=== PATIENT | male | born 1980 | race Caucasian/White ===

== ENCOUNTER → 2019-03-07 | Outpatient (CLI) | payer BC ==
[~2019-03-07] MED LIST: ALBUTEROL0.09 MG/A2 INH; ANTIBIOTIC O500 U/GM TP; AUGMENTIN 875 M1 TAB PO; CEFADROXIL500 M1 PO; CIPRO500 MG PO; CLARITIN-D 10 M1 T21 PO; CLARITIN10 MG PO; CLINDAMYCIN HC300 MG PO; HYDROCODONE BIT1 T11 PO; LOMOTIL 0.025 M1 TA1 PO; MULTIPLE VITAMI1 CAP PO; NAPROSYN500 MG PO; NKHM; TOBRADEX 0.1%-0.5 ML OPH; Tessalon Perle100 MG PO; VITAMIN B12; ZITHROMAX500 MG PO; ZOFRAN ODT4 MG SL
[2019-03-07 13:18] LABS: BILIRUBIN NEGATIVE (NEGATIVE); BLOOD NEGATIVE (NEGATIVE); CLARITY CLEAR (CLEAR); COLOR ORANGE (YELLOW); GLUCOSE NEGATIVE (NEGATIVE); KETONE NEGATIVE (NEGATIVE); LEUKO ESTERASE NEGATIVE (NEGATIVE); NITRITE NEGATIVE (NEGATIVE); SPECIFIC GRAVITY >= 1.030 (1.005-1.030); UROBILINOGEN 0.2 E.U./dl (0.2-1.0)
[2019-03-07 13:24] LABS: BACTERIA 1+; EPITHELIAL CELLS 0-2; MUCOUS TRACE; RBC 0-2 rbc/hpf (0-2)
[2019-03-07 13:48] LABS: CHOLESTEROL 191 mg/dL (<200); HDL CHOLESTEROL 35 mg/dl (40-60); LDL CHOLESTEROL 110 mg/dL (9-159); TRIGLYCERIDES 230 mg/dl (<150); VLDL CHOLESTEROL 46 mg/dL (6-40)
== END | disposition home or self-care (01) ==
LOC: LAB 12:59
PROVIDERS: Family Medicine
DX: R79.89 Other specified abnormal findings of blood chemistry (principal); R53.83 Other fatigue

== ENCOUNTER → 2020-04-01 | Outpatient (CLI) | payer BC | END | disposition home or self-care (01) | LOC: COVID19 11:43 | PROVIDERS: ATTEND Family Medicine | DX: U07.1 COVID-19 (principal) ==

== ENCOUNTER → 2020-04-12 | Outpatient (CLI) | payer BC | END | disposition home or self-care (01) | LOC: COVID19 11:40 | PROVIDERS: ATTEND Family Medicine | DX: Z20.828 Contact with and (suspected) exposure to other viral communicable diseases (principal) ==

== ENCOUNTER → 2020-04-28 | Outpatient (CLI) | payer BC ==
[2020-04-28 16:34] LABS: BASO % 0.5 % (0.0-1.0); BILIRUBIN Negative (Negative); BLOOD Negative (Negative); CLARITY Clear (Clear); COLOR Yellow (Yellow); EOS # 0.2 10*3/uL (0.0-0.4); EOS % 2.6 % (1.0-4.0); GLUCOSE Negative (Negative); KETONE Negative (Negative); LEUKO ESTERASE Negative (Negative); LYMPH # 2.2 10*3/uL (1.3-4.4); LYMPH % 29.8 % (27.0-41.0); MEAN CELL VOLUME 91.1 fl (80.0-94.0); MEAN CORPUSCULAR HGB 30.6 pg (27.0-31.0); MEAN CORPUSCULAR HGB CONC 33.6 g/dl (33.0-37.0); MEAN PLATELET VOLUME 9.8 fl (9.6-12.3); MONO # 0.5 10*3/uL (0.1-1.0); MONO % 6.4 % (3.0-9.0); NEUT # 4.4 10*3/uL (2.3-7.9); NEUT % 60.4 % (47.0-73.0); NITRITE Negative (Negative); PLATELET COUNT AUTOMATED 194 10*3/uL (130-400); RED BLOOD COUNT 4.61 10*6/uL (4.50-5.90); RETICULOCYTE % 1.02 % (0.50-2.50); SPECIFIC GRAVITY 1.025 (1.001-1.030); WHITE BLOOD COUNT 7.4 10*3/uL (4.8-10.8)
[2020-04-28 16:51] LABS: BUN 13 mg/dl (7-24); CHLORIDE 109 mmol/L (98-107); CHOLESTEROL 170 mg/dL (<200); CREATININE 0.87 mg/dL (0.70-1.30); GAMMA GLUTAMYL TRANSPEPTIDASE 27 U/L (15-85); HDL CHOLESTEROL 43 mg/dl (40-60); IRON 86 ug/dL (65-175); LDL CHOLESTEROL 82 mg/dL (9-159); POTASSIUM 3.6 mmol/L (3.5-5.1); SGOT/AST 27 IU/L (3-35); SGPT/ALT 34 U/L (12-78); SODIUM 142 mmol/L (136-145); TOTAL IRON BINDING CAPACITY 377 ug/dl (250-450); TOTAL PROTEIN 7.4 gm/dL (6.4-8.2); TRIGLYCERIDES 226 mg/dl (<150); VLDL CHOLESTEROL 45 mg/dL (6-40)
[2020-04-28 16:54] LABS: BACTERIA TRACE; WBC 0-2 wbc/hpf (0-5)
[2020-04-28 16:58] LABS: ALKALINE PHOSPHATASE 78 U/L (45-117); CPK 74 U/L (39-308)
== END | disposition home or self-care (01) ==
LOC: LAB 15:54
PROVIDERS: ATTEND Family Medicine
DX: E78.5 Hyperlipidemia, unspecified (principal); R79.89 Other specified abnormal findings of blood chemistry; R53.83 Other fatigue

== ENCOUNTER → 2020-11-08 | Outpatient (CLI) | payer BC ==
[2020-11-08 09:47] LABS: COLOR Yellow (Yellow)
[2020-11-08 09:48] LABS: BASO % 0.5 % (0.0-1.0); BILIRUBIN Negative (Negative); BLOOD Negative (Negative); CLARITY Cloudy (Clear); EOS # 0.2 10*3/uL (0.0-0.4); EOS % 3.1 % (1.0-4.0); GLUCOSE Negative (Negative); HEMATOCRIT 44.6 % (42.0-52.0); KETONE Negative (Negative); LEUKO ESTERASE Negative (Negative); LYMPH # 1.8 10*3/uL (1.3-4.4); LYMPH % 27.7 % (27.0-41.0); MEAN CELL VOLUME 90.3 fl (80.0-94.0); MEAN CORPUSCULAR HGB 30.8 pg (27.0-31.0); MEAN CORPUSCULAR HGB CONC 34.1 g/dl (33.0-37.0); MONO # 0.3 10*3/uL (0.1-1.0); MONO % 4.3 % (3.0-9.0); MUCOUS TRACE; NEUT # 4.2 10*3/uL (2.3-7.9); NEUT % 64.2 % (47.0-73.0); NITRITE Negative (Negative); PLATELET COUNT AUTOMATED 208 10*3/uL (130-400); RBC 0-2 rbc/hpf (0-2); RED BLOOD COUNT 4.94 10*6/uL (4.50-5.90); RED CELL DISTRI WIDTH 12.8 % (0-14.5); RETICULOCYTE % 1.06 % (0.50-2.50); WBC 0-2 wbc/hpf (0-5); WHITE BLOOD COUNT 6.5 10*3/uL (4.8-10.8)
[2020-11-08 10:03] LABS: ALBUMIN 3.9 gm/dl (3.1-4.5); ALKALINE PHOSPHATASE 87 U/L (45-117); BUN 12 mg/dl (7-24); CHLORIDE 112 mmol/L (98-107); CHOLESTEROL 159 mg/dL (<200); CPK 88 U/L (39-308); CREATININE 1.14 mg/dL (0.70-1.30); GAMMA GLUTAMYL TRANSPEPTIDASE 21 U/L (15-85); IRON 139 ug/dL (65-175); LDL CHOLESTEROL 79 mg/dL (9-159); POTASSIUM 3.8 mmol/L (3.5-5.1); SGOT/AST 25 IU/L (3-35); SGPT/ALT 26 U/L (12-78); SODIUM 143 mmol/L (136-145); TOTAL IRON BINDING CAPACITY 344 ug/dl (250-450); TOTAL PROTEIN 7.5 gm/dL (6.4-8.2); TRIGLYCERIDES 201 mg/dl (<150)
[2020-11-08 10:35] LABS: FERRITIN 157.9 ng/mL (22.0-322.0); VITAMIN D, 25-HYDROXY 22.3 ng/mL (30-100)
== END | disposition home or self-care (01) ==
LOC: LAB 09:03
PROVIDERS: ATTEND Family Medicine
DX: E55.9 Vitamin D deficiency, unspecified (principal); R79.89 Other specified abnormal findings of blood chemistry; R53.83 Other fatigue; E78.5 Hyperlipidemia, unspecified; R74.8 Abnormal levels of other serum enzymes

== ENCOUNTER → 2021-05-28 | Outpatient (CLI) | payer BC ==
[2021-05-28 16:17] LABS: BASO # 0.1 10*3/uL (0.0-0.1); BASO % 0.8 % (0.0-1.0); EOS # 0.3 10*3/uL (0.0-0.4); EOS % 3.3 % (1.0-4.0); HEMATOCRIT 44.9 % (42.0-52.0); LYMPH # 2.5 10*3/uL (1.3-4.4); LYMPH % 31.5 % (27.0-41.0); MEAN CELL VOLUME 88.9 fl (80.0-94.0); MEAN CORPUSCULAR HGB 30.7 pg (27.0-31.0); MEAN CORPUSCULAR HGB CONC 34.5 g/dl (33.0-37.0); MEAN PLATELET VOLUME 9.6 fl (9.6-12.3); MONO # 0.5 10*3/uL (0.1-1.0); MONO % 5.9 % (3.0-9.0); NEUT # 4.6 10*3/uL (2.3-7.9); NEUT % 58.2 % (47.0-73.0); PLATELET COUNT AUTOMATED 225 10*3/uL (130-400); RED BLOOD COUNT 5.05 10*6/uL (4.50-5.90); RED CELL DISTRI WIDTH 12.5 % (0-14.5); RETICULOCYTE % 1.02 % (0.50-2.50); WHITE BLOOD COUNT 7.8 10*3/uL (4.8-10.8)
[2021-05-28 16:23] LABS: BILIRUBIN Negative (Negative); BLOOD Negative (Negative); CLARITY Clear (Clear); COLOR Yellow (Yellow); GLUCOSE Negative (Negative); KETONE Trace (Negative); LEUKO ESTERASE Negative (Negative); NITRITE Negative (Negative)
[2021-05-28 16:36] LABS: ALBUMIN 3.9 gm/dl (3.1-4.5); ALKALINE PHOSPHATASE 87 U/L (45-117); BUN 13 mg/dl (7-24); CHLORIDE 111 mmol/L (98-107); CHOLESTEROL 150 mg/dL (<200); CREATININE 1.09 mg/dL (0.70-1.30); GAMMA GLUTAMYL TRANSPEPTIDASE 29 U/L (15-85); IRON 85 ug/dL (65-175); POTASSIUM 3.9 mmol/L (3.5-5.1); SGOT/AST 28 IU/L (3-35); SGPT/ALT 30 U/L (12-78); SODIUM 145 mmol/L (136-145); TOTAL IRON BINDING CAPACITY 357 ug/dl (250-450); TOTAL PROTEIN 7.8 gm/dL (6.4-8.2); TRIGLYCERIDES 459 mg/dl (<150)
[2021-05-28 16:52] LABS: MUCOUS TRACE; RBC 0-2 rbc/hpf (0-2)
[2021-05-28 17:24] LABS: FERRITIN 130.1 ng/mL (22.0-322.0); VITAMIN D, 25-HYDROXY 23.2 ng/mL (30-100)
== END | disposition home or self-care (01) ==
LOC: LAB 15:28
PROVIDERS: ATTEND Family Medicine
DX: R79.89 Other specified abnormal findings of blood chemistry (principal); R53.83 Other fatigue; E78.5 Hyperlipidemia, unspecified; E55.9 Vitamin D deficiency, unspecified

== ENCOUNTER → 2021-07-11 | Outpatient (CLI) | payer BC ==
[2021-07-11 17:52] LABS: CHOLESTEROL 150 mg/dL (<200); LDL CHOLESTEROL 73 mg/dL (9-159); TRIGLYCERIDES 189 mg/dl (<150)
== END | disposition home or self-care (01) ==
LOC: LAB 16:58
PROVIDERS: ATTEND Family Medicine
DX: R53.83 Other fatigue (principal); R79.89 Other specified abnormal findings of blood chemistry

== ENCOUNTER → 2021-11-08 | Outpatient (CLI) | payer BC ==
[2021-11-08 16:52] LABS: TOTAL PROTEIN 7.7 gm/dL (6.4-8.2)
== END | disposition home or self-care (01) ==
LOC: LAB 15:52
PROVIDERS: ATTEND Family Medicine
DX: E78.5 Hyperlipidemia, unspecified (principal); R79.89 Other specified abnormal findings of blood chemistry; R53.83 Other fatigue; R74.8 Abnormal levels of other serum enzymes

== ENCOUNTER → 2022-03-10 | Outpatient (CLI) | payer OTHER ==
[2022-03-10 16:33] LABS: BASO # 0.1 10*3/uL (0.0-0.1); BASO % 0.8 % (0.0-1.0); BILIRUBIN Negative (Negative); BLOOD Negative (Negative); CLARITY Clear (Clear); COLOR Yellow (Yellow); EOS # 0.3 10*3/uL (0.0-0.4); GLUCOSE Negative (Negative); HEMATOCRIT 44.1 % (42.0-52.0); KETONE Trace (Negative); LEUKO ESTERASE Negative (Negative); LYMPH # 2.3 10*3/uL (1.3-4.4); LYMPH % 32.1 % (27.0-41.0); MEAN CELL VOLUME 89.1 fl (80.0-94.0); MEAN CORPUSCULAR HGB 30.7 pg (27.0-31.0); MEAN CORPUSCULAR HGB CONC 34.5 g/dl (33.0-37.0); MONO # 0.5 10*3/uL (0.1-1.0); MONO % 6.6 % (3.0-9.0); NEUT # 4.1 10*3/uL (2.3-7.9); NEUT % 56.4 % (47.0-73.0); NITRITE Negative (Negative); PH 6.5 (4.5-8.0); PLATELET COUNT AUTOMATED 210 10*3/uL (130-400); RED BLOOD COUNT 4.95 10*6/uL (4.50-5.90); RED CELL DISTRI WIDTH 12.2 % (0-14.5); RETICULOCYTE % 1.03 % (0.50-2.50); WHITE BLOOD COUNT 7.2 10*3/uL (4.8-10.8)
[2022-03-10 16:46] LABS: CALCIUM OXALATE CRYSTALS 1+; WBC 0-2 wbc/hpf (0-5)
[2022-03-10 16:47] LABS: EPITHELIAL CELLS 0-2
[2022-03-10 16:49] LABS: ALKALINE PHOSPHATASE 99 U/L (45-117); BUN 12 mg/dl (7-24); CHLORIDE 108 mmol/L (98-107); CHOLESTEROL 125 mg/dL (<200); CREATININE 1.03 mg/dL (0.70-1.30); GAMMA GLUTAMYL TRANSPEPTIDASE 31 U/L (15-85); IRON 87 ug/dL (65-175); LDL CHOLESTEROL 47 mg/dL (9-159); POTASSIUM 3.5 mmol/L (3.5-5.1); SGPT/ALT 32 U/L (12-78); SODIUM 145 mmol/L (136-145); TOTAL PROTEIN 7.8 gm/dL (6.4-8.2); TRIGLYCERIDES 222 mg/dl (<150); URIC ACID 7.3 mg/dL (3.5-7.2)
[2022-03-11 09:06] LABS: RHEUMATOID FACTOR <10.0 IU/mL (<14.0)
[2022-03-11 13:05] LABS: ANTI-DSDNA ANTIBODIES 1 IU/mL (0-9)
== END | disposition home or self-care (01) ==
LOC: LAB 16:01
PROVIDERS: ATTEND Family Medicine
DX: E78.5 Hyperlipidemia, unspecified (principal); R79.89 Other specified abnormal findings of blood chemistry; R53.83 Other fatigue; R74.8 Abnormal levels of other serum enzymes

== ENCOUNTER → 2022-10-07 | Outpatient (CLI) | payer OTHER ==
[2022-10-07 09:27] LABS: BASO # 0.1 10*3/uL (0.0-0.1); BASO % 0.9 % (0.0-1.0); BILIRUBIN Negative (Negative); BLOOD Negative (Negative); CLARITY Clear (Clear); COLOR Yellow (Yellow); EOS # 0.2 10*3/uL (0.0-0.4); EOS % 3.1 % (1.0-4.0); GLUCOSE Negative (Negative); HEMATOCRIT 47.2 % (42.0-52.0); KETONE Negative (Negative); LEUKO ESTERASE Negative (Negative); LYMPH # 2.2 10*3/uL (1.3-4.4); LYMPH % 29.8 % (27.0-41.0); MEAN CELL VOLUME 91.1 fl (80.0-94.0); MEAN CORPUSCULAR HGB 30.9 pg (27.0-31.0); MEAN CORPUSCULAR HGB CONC 33.9 g/dl (33.0-37.0); MONO # 0.4 10*3/uL (0.1-1.0); MONO % 4.9 % (3.0-9.0); NEUT # 4.5 10*3/uL (2.3-7.9); NITRITE Negative (Negative); PLATELET COUNT AUTOMATED 213 10*3/uL (130-400); RED BLOOD COUNT 5.18 10*6/uL (4.50-5.90); RED CELL DISTRI WIDTH 12.8 % (0-14.5); RETICULOCYTE % 1.25 % (0.50-2.50); UROBILINOGEN 0.2 E.U./dl (0.0-1.0); WHITE BLOOD COUNT 7.4 10*3/uL (4.8-10.8)
[2022-10-07 10:27] LABS: ALKALINE PHOSPHATASE 86 U/L (46-116); BUN 10 mg/dl (9-23); CHLORIDE 110 mmol/L (98-107); CHOLESTEROL 126 mg/dL (<200); GAMMA GLUTAMYL TRANSPEPTIDASE 26 U/L (0-73); LDL CHOLESTEROL 70 mg/dL (9-159); SGPT/ALT 16 U/L (10-49); THYROID STIM HORMONE (HS) 1.137 uIU/ml (0.550-4.780); TOTAL PROTEIN 7.2 gm/dL (6.0-8.0); TRIGLYCERIDES 112 mg/dl (<150)
[2022-10-07 11:02] LABS: BACTERIA TRACE; EPITHELIAL CELLS 0-2; RBC 0-2 rbc/hpf (0-2); WBC 0-2 wbc/hpf (0-5)
== END | disposition home or self-care (01) ==
LOC: LAB 09:07
PROVIDERS: ATTEND Family Medicine
DX: R79.89 Other specified abnormal findings of blood chemistry (principal); R53.83 Other fatigue; R74.8 Abnormal levels of other serum enzymes

== ENCOUNTER → 2023-10-22 | Outpatient (CLI) | payer OTHER ==
[2023-10-22 14:27] LABS: BASO # 0.1 10*3/uL (0.0-0.1); BASO % 0.6 % (0.0-1.0); BILIRUBIN Negative (Negative); BLOOD Negative (Negative); CLARITY Clear (Clear); COLOR Yellow (Yellow); EOS # 0.2 10*3/uL (0.0-0.4); EOS % 1.7 % (1.0-4.0); GLUCOSE Negative (Negative); HEMATOCRIT 43.6 % (42.0-52.0); KETONE Negative (Negative); LEUKO ESTERASE Negative (Negative); LYMPH # 2.1 10*3/uL (1.3-4.4); LYMPH % 24.7 % (27.0-41.0); MEAN CELL VOLUME 90.3 fl (80.0-94.0); MEAN CORPUSCULAR HGB 31.1 pg (27.0-31.0); MEAN CORPUSCULAR HGB CONC 34.4 g/dl (33.0-37.0); MEAN PLATELET VOLUME 10.2 fl (9.6-12.3); MONO # 0.4 10*3/uL (0.1-1.0); MONO % 4.8 % (3.0-9.0); NEUT # 5.9 10*3/uL (2.3-7.9); NEUT % 68.1 % (47.0-73.0); NITRITE Negative (Negative); PH 5.5 (4.5-8.0); PLATELET COUNT AUTOMATED 200 10*3/uL (130-400); RED BLOOD COUNT 4.83 10*6/uL (4.50-5.90); RED CELL DISTRI WIDTH 12.8 % (0-14.5); RETICULOCYTE % 1.13 % (0.50-2.50); SPECIFIC GRAVITY 1.025 (1.001-1.030); WHITE BLOOD COUNT 8.6 10*3/uL (4.8-10.8)
[2023-10-22 14:35] LABS: BACTERIA 1+; MUCOUS 1+
[2023-10-22 14:55] LABS: ALKALINE PHOSPHATASE 90 U/L (46-116); BUN 8 mg/dl (9-23); CHLORIDE 110 mmol/L (98-107); CHOLESTEROL 135 mg/dL (<200); GAMMA GLUTAMYL TRANSPEPTIDASE 29 U/L (0-73); LDL CHOLESTEROL 63 mg/dL (9-159); POTASSIUM 3.4 mmol/L (3.4-5.1); SGPT/ALT 16 U/L (5-49); T3 UPTAKE 30.4 % (22.4-36.7); THYROXINE (T4) TOTAL 6.3 ug/dl (4.5-10.9); TOTAL PROTEIN 7.4 gm/dL (6.0-8.0); TRIGLYCERIDES 185 mg/dl (<150); VITAMIN D, 25-HYDROXY 29.9 ng/mL (30-100)
== END | disposition home or self-care (01) ==
LOC: LAB 13:57
PROVIDERS: ATTEND Family Medicine
DX: E78.5 Hyperlipidemia, unspecified (principal); R79.89 Other specified abnormal findings of blood chemistry; R53.83 Other fatigue; E55.9 Vitamin D deficiency, unspecified

== ENCOUNTER → 2024-01-12 | Outpatient (CLI) | payer OTHER ==
[2024-01-12 08:37] LABS: TOTAL PROTEIN 7.1 gm/dL (6.0-8.0)
== END | disposition home or self-care (01) ==
LOC: LAB 07:50
PROVIDERS: ATTEND Family Medicine
DX: R79.89 Other specified abnormal findings of blood chemistry (principal); R53.83 Other fatigue; E78.5 Hyperlipidemia, unspecified

== ENCOUNTER → 2024-04-21 | Outpatient (CLI) | payer OTHER ==
[2024-04-21 09:56] LABS: BILIRUBIN Negative (Negative); BLOOD Negative (Negative); CLARITY Clear (Clear); COLOR Yellow (Yellow); GLUCOSE Negative (Negative); KETONE Negative (Negative); LEUKO ESTERASE Negative (Negative); NITRITE Negative (Negative); PH 5.5 (4.5-8.0); UROBILINOGEN 0.2 E.U./dl (0.0-1.0)
[2024-04-21 10:11] LABS: BACTERIA TRACE; MUCOUS 1+; RBC 0-2 rbc/hpf (0-2); WBC 0-2 wbc/hpf (0-5)
[2024-04-21 10:15] LABS: BASO # 0.1 10*3/uL (0.0-0.1); BASO % 0.9 % (0.0-1.0); EOS # 0.2 10*3/uL (0.0-0.4); EOS % 3.6 % (1.0-4.0); HEMATOCRIT 45.5 % (42.0-52.0); MEAN CELL VOLUME 91.4 fl (80.0-94.0); MEAN CORPUSCULAR HGB 30.5 pg (27.0-31.0); MEAN CORPUSCULAR HGB CONC 33.4 g/dl (33.0-37.0); MEAN PLATELET VOLUME 10.2 fl (9.6-12.3); MONO # 0.4 10*3/uL (0.1-1.0); MONO % 5.5 % (3.0-9.0); NEUT # 4.1 10*3/uL (2.3-7.9); NEUT % 60.9 % (47.0-73.0); PLATELET COUNT AUTOMATED 207 10*3/uL (130-400); RED BLOOD COUNT 4.98 10*6/uL (4.50-5.90); RED CELL DISTRI WIDTH 12.6 % (0-14.5); RETICULOCYTE % 1.15 % (0.50-2.50); WHITE BLOOD COUNT 6.7 10*3/uL (4.8-10.8)
[2024-04-21 10:27] LABS: ALKALINE PHOSPHATASE 99 U/L (46-116); BUN 11 mg/dl (9-23); CHLORIDE 108 mmol/L (98-107); CHOLESTEROL 131 mg/dL (<200); GAMMA GLUTAMYL TRANSPEPTIDASE 28 U/L (0-73); LDL CHOLESTEROL 63 mg/dL (9-159); POTASSIUM 4.1 mmol/L (3.4-5.1); SGPT/ALT 21 U/L (5-49); TOTAL PROTEIN 7.3 gm/dL (6.0-8.0); TRIGLYCERIDES 151 mg/dl (<150)
== END | disposition home or self-care (01) ==
LOC: LAB 09:03
PROVIDERS: ATTEND Family Medicine
DX: R79.89 Other specified abnormal findings of blood chemistry (principal); R53.83 Other fatigue; E78.5 Hyperlipidemia, unspecified; E55.9 Vitamin D deficiency, unspecified

== ENCOUNTER → 2025-01-15 | Outpatient (CLI) | payer OTHER ==
[2025-01-15 16:01] LABS: BILIRUBIN Negative (Negative); BLOOD Negative (Negative); CLARITY Clear (Clear); COLOR Yellow (Yellow); KETONE Trace (Negative); LEUKO ESTERASE Negative (Negative); NITRITE Negative (Negative); PH 5.5 (4.5-8.0); SPECIFIC GRAVITY 1.025 (1.001-1.030); UROBILINOGEN 1.0 E.U./dl (0.0-1.0)
[2025-01-15 16:04] LABS: BASO # 0.0 10*3/uL (0.0-0.1); BASO % 0.4 % (0.0-1.0); EOS # 0.2 10*3/uL (0.0-0.4); EOS % 2.1 % (1.0-4.0); MEAN CELL VOLUME 92.1 fl (80.0-94.0); MEAN CORPUSCULAR HGB 31.6 pg (27.0-31.0); MEAN PLATELET VOLUME 9.9 fl (9.6-12.3); MONO # 0.5 10*3/uL (0.1-1.0); MONO % 5.1 % (3.0-9.0); NEUT # 6.8 10*3/uL (2.3-7.9); NEUT % 70.3 % (47.0-73.0); NUCLEATED RED BLOOD CELL 0.0 % (0.0-0.0); NUCLEATED RED BLOOD CELL 0.0 10*3/uL (0.0-0.0); PLATELET COUNT AUTOMATED 203 10*3/uL (130-400); RED CELL DISTRI WIDTH 12.7 % (0-14.5); RETICULOCYTE % 1.16 % (0.50-2.50)
[2025-01-15 16:16] LABS: RBC 0-2 rbc/hpf (0-2); WBC 0-2 wbc/hpf (0-5)
[2025-01-15 16:39] LABS: BUN 12 mg/dl (9-23); GAMMA GLUTAMYL TRANSFERASE 22 U/L (0-73); LDL CHOLESTEROL 33 mg/dL (9-159); SGPT/ALT 22 U/L (5-49)
[2025-01-15 16:42] LABS: VITAMIN D, 25-HYDROXY 37.2 ng/mL (30-100)
== END | disposition home or self-care (01) ==
LOC: LAB 15:27
PROVIDERS: ATTEND Family Medicine
DX: R79.89 Other specified abnormal findings of blood chemistry (principal); E78.5 Hyperlipidemia, unspecified; R53.83 Other fatigue; E55.9 Vitamin D deficiency, unspecified